=== PATIENT | male | born 1990 | race Caucasian/White ===

== ENCOUNTER 2017-08-24 21:01 | Emergency (ER) | payer SELFPAY ==
--- NOTE | 2017-08-24 21:13 | ED.EXTPRO ---
HPI - Extremity Problem <BRII Lacey - Last Filed: 08/24/17 22:15> General Chief complaint: Extremity Injury, Upper Stated complaint: LEFT HAND FINGER LACERATION Time Seen by Provider: 08/24/17 21:12 Source: patient History of Present Illness HPI Narrative: 26-year-old healthy male here for complaint of laceration to his left index finger that happened earlier today. He states that he was using a grinder set up operator thread when it brushed across the dorsal aspect over the PIP joint of the left index finger. He denies any other injuries or concerns. He states that his tetanus is up-to-date. He denies any loss of movement to the left index finger. He denies any loss of sensation of the left index finger Related Data Home Medications Medication Instructions Recorded Confirmed citalopram [Celexa] 40 mg PO QDAY #0 01/10/12 dextroamphetamine-amphetamine 20 mg PO BID #0 01/10/12 [Adderall] Allergies Allergy/AdvReac Type Severity Reaction Status Date / Time No Known Drug Allergies Allergy Verified 08/24/17 21:32 Review of Systems <BRII Lacye - Last Filed: 08/24/17 22:15> Constitutional Denies chills, Denies fever(s), Denies lethargy and Denies weakness ENT Ears, Nose, Mouth, and Throat: Denies change in voice, Denies neck pain and Denies sore throat Gastrointestinal Gastrointestinal: Denies abdominal pain, Denies change in bowel habits, Denies diarrhea, Denies nausea and Denies vomiting Musculoskeletal Denies neck pain Comments: Laceration left index finger Neurologic Denies confusion and Denies weakness Psychiatric Denies anxiety, Denies confusion, Denies depression, Denies homicidal ideation and Denies suicidal ideation Exam <BRII Lacey - Last Filed: 08/24/17 22:15> Initial Vital Signs Initial Vital Signs: Vital Signs Temperature 97.9 F 08/24/17 21:25 Pulse Rate 61 08/24/17 21:25 Respiratory Rate 15 08/24/17 21:25 Blood Pressure 124/61 H 08/24/17 21:25 Pulse Oximetry 97 08/24/17 21:25 Const General: cooperative and well developed Nutritional Appearance: well nourished Orientation: alert, awake, oriented x3 and not confused HENVA Head: normocephalic and atraumatic Nose: nasal discharge Mouth: oral mucosae normal, oropharynx normal and moist mucous membranes Throat: tonsils normal and uvula midline Eyes General: appearance normal, both eyes and all related structures Eyelids: eyelids normal Conjunctivae: conjunctivae normal Sclera: sclerae normal Pupils: PERRL EOM: EOM intact bilaterally Resp Effort & Inspection: normal respiratory effort, able to speak in complete sentences, no respiratory distress and no use of accessory muscles Auscultation: clear to auscultation bilaterally, no rales, no rhonchi and no wheezes Cardio Rate: regular rate Rhythm: regular rhythm Heart Sounds: no click, no gallops, no murmurs and no rubs Skin General: no rashes or lesions noted, No jaundice and No petechiae Extrem Other: Left index finger with laceration/abrasion to the dorsal aspect of the left index finger approximately 2.5 cm long. Distal sensation is intact. Full range of motion distal cap refill less than 2 sec. <Ananda Archer MD - Last Filed: 09/07/17 08:01> Initial Vital Signs Initial Vital Signs: Vital Signs Temperature 97.9 F 08/24/17 21:25 Pulse Rate 61 08/24/17 21:25 Respiratory Rate 15 08/24/17 21:25 Blood Pressure 124/61 H 08/24/17 21:25 Pulse Oximetry 97 08/24/17 21:25 Procedures <BRII Lacey - Last Filed: 08/24/17 22:15> Joint Aspiration/Injection Laceration 1: Site: other Side (If applicable): left Size (cm): 2.5 Description: linear Depth: simple, single layer Local Anesthetic: lidocaine 1% Amount of anesthesia used (mL): 2 Pre-repair: wound explored and irrigated extensively Skin layer closed with: nylon Size (cm): 5-0 Number of sutures: 3 Technique: simple, interrupted Size: 5-0 Course <BRII Lacey - Last Filed: 08/24/17 22:15> Vital Signs - 8 hr 08/24/17 21:25 Temperature 97.9 F Pulse Rate 61 Respiratory Rate 15 Blood Pressure 124/61 H Pulse Oximetry 97 <Ananda Archer MD - Last Filed: 09/07/17 08:01> Vital Signs - 8 hr 08/24/17 21:25 Temperature 97.9 F Pulse Rate 61 Respiratory Rate 15 Blood Pressure 124/61 H Pulse Oximetry 97 MDM - Extremity (Nontraumatic) <BRII Lacey - Last Filed: 08/24/17 22:15> [facility] Narrative Medical decision making narrative: Laceration left index finger was closed with 3 nylon simple interrupted sutures. Proximal aspect of the laceration/abrasion could not be closed due to skin flap being removed by grinder set up operator thread. Wound dressed with bacitracin and a dressing that. Dress wound daily with bacitracin and dressing until healed. Follow up with primary care provider. Stitches to removed in 7 days. [id number] Tylenol and Motrin as needed for any discomfort for any worsening symptoms return to the emergency room. Discharge Plan Departure Patient Disposition: Home, Self-Care Clinical Impression: Laceration of finger of left hand Discharge Date/Time: 08/24/17 23:47 Interventions: ED Discharge Assessment Last Done: 08/24/17 22:15 Instructions: DI for Laceration Repair Activity Restrictions/Additional Instructions: Laceration left index finger was closed with 3 stitches. Keep wound area clean and dry for 24 hr. Dress wound daily with bacitracin and dressing until healed. Follow up with primary care provider. Stitches to removed in 7 days. [id number] Tylenol and Motrin as needed for any discomfort for any worsening symptoms return to the emergency room. Prescriptions: No Action citalopram [Celexa] 40 MG tablet 40 mg PO QDAY Qty: 0 RF: 0 dextroamphetamine-amphetamine [Adderall] 20 MG tablet 20 mg PO BID Qty: 0 RF: 0 Referrals: Simón Jamison MD [Primary Care Provider] - <Ananda Archer MD - Last Filed: 09/07/17 08:01> Cosign ED Attending Cosignature Attestation: The PA/MERCHANDISE CARRIER functioned independently for the care of this pt, I was available, but not asked to participate in care. I am unable to determine appropriateness of management without personally examining the pt.
[2017-08-24 21:25] VITALS: BP 124/61; PULSE 61; RESP 15; TEMP 36.6; O2SAT 97; BMI 24.3
--- NOTE | 2017-08-24 21:56 | ED_ITS ---
HPI - Extremity Problem <BRII Lacey - Last Filed: 08/24/17 22:15> General Chief complaint: Extremity Injury, Upper Stated complaint: LEFT HAND FINGER LACERATION Time Seen by Provider: 08/24/17 21:12 Source: patient History of Present Illness HPI Narrative: 26-year-old healthy male here for complaint of laceration to his left index finger that happened earlier today. He states that he was using a jewel grinder when it brushed across the dorsal aspect over the PIP joint of the left index finger. He denies any other injuries or concerns. He states that his tetanus is up-to-date. He denies any loss of movement to the left index finger. He denies any loss of sensation of the left index finger Related Data Home Medications Medication Instructions Recorded Confirmed citalopram [Celexa] 40 mg PO QDAY #0 01/10/12 dextroamphetamine-amphetamine 20 mg PO BID #0 01/10/12 [Adderall] Allergies Allergy/AdvReac Type Severity Reaction Status Date / Time No Known Drug Allergies Allergy Verified 08/24/17 21:32 Review of Systems <BRII Lacey - Last Filed: 08/24/17 22:15> Constitutional Denies chills, Denies fever(s), Denies lethargy and Denies weakness ENT Ears, Nose, Mouth, and Throat: Denies change in voice, Denies neck pain and Denies sore throat Gastrointestinal Gastrointestinal: Denies abdominal pain, Denies change in bowel habits, Denies diarrhea, Denies nausea and Denies vomiting Musculoskeletal Denies neck pain Comments: Laceration left index finger Neurologic Denies confusion and Denies weakness Psychiatric Denies anxiety, Denies confusion, Denies depression, Denies homicidal ideation and Denies suicidal ideation Exam <BRII Lacey - Last Filed: 08/24/17 22:15> Initial Vital Signs Initial Vital Signs: Vital Signs Temperature 97.9 F 08/24/17 21:25 Pulse Rate 61 08/24/17 21:25 Respiratory Rate 15 08/24/17 21:25 Blood Pressure 124/61 H 08/24/17 21:25 Pulse Oximetry 97 08/24/17 21:25 Const General: cooperative and well developed Nutritional Appearance: well nourished Orientation: alert, awake, oriented x3 and not confused HENFL Head: normocephalic and atraumatic Nose: nasal discharge Mouth: oral mucosae normal, oropharynx normal and moist mucous membranes Throat: tonsils normal and uvula midline Eyes General: appearance normal, both eyes and all related structures Eyelids: eyelids normal Conjunctivae: conjunctivae normal Sclera: sclerae normal Pupils: PERRL EOM: EOM intact bilaterally Resp Effort & Inspection: normal respiratory effort, able to speak in complete sentences, no respiratory distress and no use of accessory muscles Auscultation: clear to auscultation bilaterally, no rales, no rhonchi and no wheezes Cardio Rate: regular rate Rhythm: regular rhythm Heart Sounds: no click, no gallops, no murmurs and no rubs Skin General: no rashes or lesions noted, No jaundice and No petechiae Extrem Other: Left index finger with laceration/abrasion to the dorsal aspect of the left index finger approximately 2.5 cm long. Distal sensation is intact. Full range of motion distal cap refill less than 2 sec. <Ananda Archer MD - Last Filed: 09/07/17 08:01> Initial Vital Signs Initial Vital Signs: Vital Signs Temperature 97.9 F 08/24/17 21:25 Pulse Rate 61 08/24/17 21:25 Respiratory Rate 15 08/24/17 21:25 Blood Pressure 124/61 H 08/24/17 21:25 Pulse Oximetry 97 08/24/17 21:25 Procedures <BRII Lacey - Last Filed: 08/24/17 22:15> Joint Aspiration/Injection Laceration 1: Site: other Side (If applicable): left Size (cm): 2.5 Description: linear Depth: simple, single layer Local Anesthetic: lidocaine 1% Amount of anesthesia used (mL): 2 Pre-repair: wound explored and irrigated extensively Skin layer closed with: nylon Size (cm): 5-0 Number of sutures: 3 Technique: simple, interrupted Size: 5-0 Course <BRII Lacey - Last Filed: 08/24/17 22:15> Vital Signs - 8 hr 08/24/17 21:25 Temperature 97.9 F Pulse Rate 61 Respiratory Rate 15 Blood Pressure 124/61 H Pulse Oximetry 97 <Ananda Archer MD - Last Filed: 09/07/17 08:01> Vital Signs - 8 hr 08/24/17 21:25 Temperature 97.9 F Pulse Rate 61 Respiratory Rate 15 Blood Pressure 124/61 H Pulse Oximetry 97 MDM - Extremity (Nontraumatic) <BRII Lacey - Last Filed: 08/24/17 22:15> [facility] Narrative Medical decision making narrative: Laceration left index finger was closed with 3 nylon simple interrupted sutures. Proximal aspect of the laceration/abrasion could not be closed due to skin flap being removed by jewel grinder. Wound dressed with bacitracin and a dressing that. Dress wound daily with bacitracin and dressing until healed. Follow up with primary care provider. Stitches to removed in 7 days. [id number] Tylenol and Motrin as needed for any discomfort for any worsening symptoms return to the emergency room. Discharge Plan Departure Patient Disposition: Home, Self-Care Clinical Impression: Laceration of finger of left hand Discharge Date/Time: 08/24/17 23:47 Interventions: ED Discharge Assessment Last Done: 08/24/17 22:15 Instructions: DI for Laceration Repair Activity Restrictions/Additional Instructions: Laceration left index finger was closed with 3 stitches. Keep wound area clean and dry for 24 hr. Dress wound daily with bacitracin and dressing until healed. Follow up with primary care provider. Stitches to removed in 7 days. [id number] Tylenol and Motrin as needed for any discomfort for any worsening symptoms return to the emergency room. Prescriptions: No Action citalopram [Celexa] 40 MG tablet 40 mg PO QDAY Qty: 0 RF: 0 dextroamphetamine-amphetamine [Adderall] 20 MG tablet 20 mg PO BID Qty: 0 RF: 0 Referrals: Simón Jamison MD [Primary Care Provider] - <Ananda Archer MD - Last Filed: 09/07/17 08:01> Cosign ED Attending Cosignature Attestation: The PA/WRIST CLOSER functioned independently for the care of this pt, I was available, but not asked to participate in care. I am unable to determine appropriateness of management without personally examining the pt.
[2017-08-24 22:15] VITALS: BP 107/64; PULSE 68; RESP 16; O2SAT 99
== END 2017-08-24 23:47 | disposition home or self-care (01) ==
PROVIDERS: Emergency Provider Nurse Practitioner Family; Family Provider Family Medicine; PCP Family Medicine
DX: S61.211A Laceration without foreign body of left index finger without damage to nail, initial encounter (principal); W26.9XXA Contact with unspecified sharp object(s), initial encounter
CPT/HCPCS: 12001; 99282

== ENCOUNTER → 2023-01-16 12:58 | Outpatient (CLI) | payer OTHER, MEDICAID, SELFPAY ==
--- NOTE | 2023-01-16 13:00 | DI.RAD.S_ITS ---
PROCEDURE: XR FOOT RT MIN 3V INDICATIONS: right foot pain, toes #2,3 TECHNIQUE: 3 views of the foot were acquired. COMPARISON: None. FINDINGS: Bones: No displaced fracture or dislocation. Soft tissues: No suspicious calcifications. IMPRESSION: No acute radiographic abnormality. If there is high concern for further derangement, consider MRI evaluation. Dictated by: Abdoulaye Gallagher M.D. on 01/16/2023 at 14:37 Approved by: Abdoulaye Gallagher M.D. on 01/16/2023 at 14:38
== END ==
PROVIDERS: Family Provider Family Medicine; PCP Family Medicine; Referring Provider Physician Assistant; Visit Provider Physician Assistant
DX: M79.671 Pain in right foot (principal)
CPT/HCPCS: 73630

== ENCOUNTER 2023-04-04 21:08 | Emergency (ER) | payer OTHER, MEDICAID, SELFPAY ==
[2023-04-04] VITALS (8 sets, daily range): BP systolic 94–108; BP diastolic 53–64; PULSE 62–79; RESP 18–22; TEMP 36.2; O2SAT 95–100; BMI 24.3
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
--- NOTE | 2023-04-04 21:41 | DI.CT.S_ITS ---
PROCEDURE: CT HEAD/BRAIN WO CON INDICATIONS: fall, head injury, vomiting TECHNIQUE: Noncontrast 4.5 mm thick angled axial sections acquired from the foramen magnum to the vertex, with coronal and sagittal reformats. For radiation dose reduction, the following was used: automated exposure control, adjustment of mA and/or kV according to patient size. COMPARISON: None. FINDINGS: Image quality: Diagnostic. CSF spaces: Basal cisterns are patent. No extra-axial fluid collections. Ventricles are normal in size and shape. Brain: No midline shift. No intracranial masses or hemorrhage. Bermudez-white matter interface is normal. Skull and face: Calvarium and visualized facial bones are intact, without suspicious lesions. Sinuses: Visualized sinuses and mastoids are clear. IMPRESSION: No acute intracranial pathology. Dictated by: Alda Chapin M.D. on 04/04/2023 at 23:12 Approved by: Alda Chapin M.D. on 04/04/2023 at 23:13
--- NOTE | 2023-04-04 21:41 | DI.CT.S_ITS ---
4PROCEDURE: CT CERVICAL SPINE WO CON INDICATIONS: fall and ETOH TECHNIQUE: Noncontrast 3 mm thick sections acquired from the skull base to the T4 level. Sagittal and coronal reformats were then constructed. For radiation dose reduction, the following was used: automated exposure control, adjustment of mA and/or kV according to patient size. COMPARISON: None. FINDINGS: Image quality: Excellent. Bones: No fractures or dislocations. Visualized superior ribs are intact. Soft tissues: Prevertebral soft tissues are normal in thickness. No paravertebral hematomas. No apical pneumothoraces. IMPRESSION: No acute fracture or traumatic subluxation. Dictated by: Alda Chapin M.D. on 04/04/2023 at 23:13 Approved by: Alda Chapin M.D. on 04/04/2023 at 23:15
[2023-04-04] MEDS: ONDANSETRON 4 MG ODT SL (21:45)
[2023-04-04] MEDS: ONDANSETRON 4 MG ODT PREPACK 1 BOTTLE MISC (23:39)
== END 2023-04-04 23:43 | disposition home or self-care (01) ==
PROVIDERS: Emergency Provider Emergency Medicine; Family Provider Family Medicine; PCP Family Medicine
DX: S06.0X0A Concussion without loss of consciousness, initial encounter (principal); W01.0XXA Fall on same level from slipping, tripping and stumbling without subsequent striking against object, initial encounter; F10.129 Alcohol abuse with intoxication, unspecified
CPT/HCPCS: 70450; 72125; 82962; 99284